=== PATIENT | male | born 1970 | race Caucasian/White ===

== ENCOUNTER 2019-04-06 14:11 | Day surgery (SDC) | payer BC, OTHER ==
[2019-04-06] MEDS ORDERED: Ondansetron 4 MG/2 ML SDV IVPUSH ONE (14:34)
[2019-04-06] MEDS ORDERED: Diphtheria,Pertussis(Acell),Tetanus Vaccine 0.5 ML Syringe IM ONE (14:34)
[2019-04-06] MEDS ORDERED: HYDROmorphone 1 MG/ML Syringe IVPUSH ONE (14:34)
[2019-04-06] MEDS ORDERED: Sodium Chloride 0.9% 1,000 ML IV ONE (14:36)
--- NOTE | 2019-04-06 14:42 | EDM.PDOC ---
ED HPI GENERAL MEDICAL PROBLEM - General Chief Complaint: Upper Extremity Injury/Pain Stated Complaint: BROKE ARM Time Seen by Provider: 04/06/19 14:33 Source of Information: Reports: Patient History Limitations: Reports: No Limitations - History of Present Illness INITIAL COMMENTS - FREE TEXT/NARRATIVE: HISTORY AND PHYSICAL: History of present illness: Patient is a 48-year-old male who presents to the emergency room today with complaints of left upper extremity pain. He states he slipped on the ice prior to arrival and has had pain from his mid humerus down to his mid forearm with an open area that is bleeding above the left elbow. He denies hitting his head or having any loss of consciousness. Denies any other extremity involvement. Has no systemic complaints. States his last time of eating/drinking was at noon. History of Type 2 DM. Review of systems: As per history of present illness and below otherwise all systems reviewed and negative. Past medical history: As per history of present illness and as reviewed below otherwise noncontributory. Surgical history: As per history of present illness and as reviewed below otherwise noncontributory. Social history: See social history for further information Family history: As per history of present illness and as reviewed below otherwise noncontributory. Physical exam: General: Well-developed and well-nourished 48-year-old male. Alert and oriented. Nontoxic-appearing and in no acute distress. HEENT: Atraumatic, normocephalic, pupils equal and reactive bilaterally, negative for conjunctival pallor or scleral icterus, mucous membranes moist, TMs normal bilaterally, throat clear, neck supple, nontender, trachea midline. No drooling or trismus noted. No meningeal signs. No hot potato voice noted. Lungs: Clear to auscultation, breath sounds equal bilaterally, chest nontender. Heart: S1S2, regular rate and rhythm without overt murmur Abdomen: Soft, nondistended, nontender. Negative for masses or hepatosplenomegaly. Negative for costovertebral tenderness. Pelvis: Stable nontender. Skin: Intact, warm, dry. No lesions or rashes noted. Extremities: Left elbow injury. Passive ROM, otherwise states he is unable to flex and extend the elbow. SEE SKIN for details. Strong radial pulse. Otherwise moves all other extremities per self without difficulty or deficits. Neurovascular unremarkable. C-spine/Back: No pinpoint vertebral tenderness upon palpation. No crepitus, step -offs or obvious deformities. Patient is ambulatory into the emergency room without difficulty or deficit. Able to rock back on heels and walk on toes. Denies any urinary or fecal incontinence. Denies any numbness, tingling or saddle paresthesia. Neuro: Awake, alert, oriented. Cranial nerves II through XII unremarkable. Cerebellum unremarkable. Motor and sensory unremarkable throughout. Exam nonfocal. Notes: X-ray shows a displaced and comminuted distal fracture of the humerus with intra -articular extension. This would be considered an open fracture as he does have a burst to the distal humerus that is controlled bleeding with an [place]win wrap at this time. Ancef has been given IV while here in the emergency room. Dr Yarbrough was consulted on this patient; he is here to evaluate the patient. Dr Yarbrough has requested CT of the upper extremity; will take to surgery. Patient is aware and agreeable to plan of care. Diagnostics: X-ray left forearm, x-ray left elbow, CT LUE, CBC, CMP Therapeutics: Zofran, Ancef, Dilaudid Impression: Open distal displaced and comminuted humerous fracture, left Plan: To OR per Dr Yarbrough Definitive disposition and diagnosis as appropriate pending reevaluation and review of above. Left Upper Elbow Pain Score (Numeric/FACES): 8 - Related Data Allergies Allergy/AdvReac Type Severity Reaction Status Date / Time No Known Allergies Allergy Verified 04/06/19 14:52 Home Meds: Home Meds . [No Known Home Meds] 04/06/19 [History] Review of Systems - Review of Systems Review Of Systems: Comprehensive ROS is negative, except as noted in HPI. ED EXAM, GENERAL - Physical Exam Exam: See Below (See dictation) Course - Vital Signs Last Recorded V/S: Last Vital Signs Temp 95.6 F 04/06/19 14:53 Pulse 65 04/06/19 14:53 Resp 16 04/06/19 14:53 BP 109/65 04/06/19 14:53 Pulse Ox 95 04/06/19 14:53 - Orders/Labs/Meds Orders: Active Orders 24 hr Category Date Time Status Vaccines to be Administered [RC] PER UNIT ROUTINE Care 04/06/19 14:35 Active Elbow wo Cont Lt [CT] Stat Exams 04/06/19 15:26 Ordered Sodium Chloride 0.9% [Normal Saline] 1,000 ml Med 04/06/19 14:36 Active IV STAT Medication Orders Sodium Chloride (Normal Saline) 1,000 mls @ 75 mls/hr IV STAT ONE Stop: 04/07/19 03:55 Last Admin: 04/06/19 15:22 Dose: 75 mls/hr Labs: Laboratory Tests 04/06/19 04/06/19 Range/Units 15:30 15:30 WBC 11.76 H (4.0-11.0) K/uL RBC 5.35 (4.50-5.90) M/uL Hgb 16.4 (13.0-17.0) g/dL Hct 48.1 (38.0-50.0) % MCV 89.9 (80.0-98.0) fL MCH 30.7 (27.0-32.0) pg MCHC 34.1 (31.0-37.0) g/dL RDW Std Deviation 43.8 (28.0-62.0) fl RDW Coeff of Namrata 13 (11.0-15.0) % Plt Count 226 (150-400) K/uL MPV 10.50 (7.40-12.00) fL Neut % (Auto) 77.0 (48.0-80.0) % Lymph % (Auto) 15.1 L (16.0-40.0) % [place] % (Auto) 6.2 (0.0-15.0) % Eos % (Auto) 1.5 (0.0-7.0) % Baso % (Auto) 0.2 (0.0-1.5) % Neut # (Auto) 9.1 H (1.4-5.7) K/uL Lymph # (Auto) 1.8 (0.6-2.4) K/uL [place] # (Auto) 0.7 (0.0-0.8) K/uL Eos # (Auto) 0.2 (0.0-0.7) K/uL Baso # (Auto) 0.0 (0.0-0.1) K/uL Nucleated RBC % 0.0 /100WBC Nucleated RBCs # 0 K/uL Sodium 135 L (136-148) mmol/L Potassium 4.2 (3.5-5.1) mmol/L Chloride 100 (98-107) mmol/L Carbon Dioxide 21.1 (21.0-32.0) mmol/L BUN 19 H (7.0-18.0) mg/dL Creatinine 1.3 (0.8-1.3) mg/dL Est Cr Clr Drug Dosing 77.10 mL/min Estimated GFR (MDRD) 59.2 ml/min Glucose 295 H (74-106) mg/dL Calcium 8.9 (8.5-10.1) mg/dL Total Bilirubin 0.6 (0.2-1.0) mg/dL AST 35 (15-37) IU/L ALT 68 H (14-63) IU/L Alkaline Phosphatase 100 (46-116) U/L Total Protein 7.9 (6.4-8.2) g/dL Albumin 3.7 (3.4-5.0) g/dL Globulin 4.2 H (2.6-4.0) g/dL Albumin/Globulin Ratio 0.9 (0.9-1.6) Meds: Medications Generic Name Dose Route Start Last Admin Trade Name Freq PRN Reason Stop Dose Admin Sodium Chloride 1,000 mls @ 75 mls/hr 04/06/19 14:36 04/06/19 15:22 Normal Saline IV 04/07/19 03:55 75 mls/hr STAT ONE Administration Discontinued Medications Generic Name Dose Route Start Last Admin Trade Name Freq PRN Reason Stop Dose Admin Diphtheria/Tetanus/Acell Pertussis 0.5 ml 04/06/19 14:34 04/06/19 15:26 Adacel IM 04/06/19 14:35 0.5 ml .ONCE ONE Administration Fentanyl Confirm 04/06/19 16:04 Sublimaze Administered 04/06/19 16:05 Dose 250 mcg .ROUTE .STK-MED ONE Glycopyrrolate Confirm 04/06/19 16:03 Robinul Administered 04/06/19 16:04 Dose 0.4 mg .ROUTE .STK-MED ONE Hydromorphone HCl 1 mg 04/06/19 14:34 04/06/19 15:14 Dilaudid IVPUSH 04/06/19 14:35 1 mg ONETIME ONE Administration Hydromorphone HCl 0.5 mg 04/06/19 16:01 Dilaudid IVPUSH 12/26/19 16:02 ONETIME ONE Cefazolin Sodium/Dextrose 1 gm 50 mls @ 100 mls/hr 04/06/19 14:49 04/06/19 15 :22 / Premix IV 04/06/19 15:18 100 mls/hr ONETIME ONE Administration Lidocaine Confirm 04/06/19 16:03 Xylocaine-Mpf 2% Administered 04/06/19 16:04 Dose 5 ml .ROUTE .STK-MED ONE Midazolam HCl Confirm 04/06/19 16:03 Versed 1 Mg/Ml Administered 04/06/19 16:04 Dose 2 mg .ROUTE .STK-MED ONE Neostigmine Methylsulfate Confirm 04/06/19 16:03 Neostigmine Administered 04/06/19 16:04 Dose 5 mg .ROUTE .STK-MED ONE Ondansetron HCl 4 mg 04/06/19 14:34 04/06/19 15:21 Zofran IVPUSH 04/06/19 14:35 4 mg ONETIME ONE Administration Ondansetron HCl Confirm 04/06/19 16:03 Zofran Administered 04/06/19 16:04 Dose 4 mg .ROUTE .STK-MED ONE Propofol Confirm 04/06/19 16:03 Diprivan 20 Ml Administered 04/06/19 16:04 Dose 200 mg .ROUTE .STK-MED ONE Rocuronium [place] Confirm 04/06/19 16:03 Zemuron Administered 04/06/19 16:04 Dose 100 mg .ROUTE .STK-MED ONE Departure - Departure Time of Disposition: 16:04 Disposition: Still A Patient 30 Clinical Impression: Humeral distal fracture Qualifiers: Encounter type: initial encounter Fracture type: open Fracture morphology: other fracture Fracture alignment: displaced Laterality: left Qualified Code(s) : S42.492B - Other displaced fracture of lower end of left humerus, initial encounter for open fracture - Discharge Information Sepsis Event Note - Focused Exam Vital Signs: Vital Signs Temp Pulse Resp BP Pulse Ox 04/06/19 14:53 95.6 F 65 16 109/65 95 Date Exam was Performed: 04/06/19 Time Exam was Performed: 16:19 - My Orders Last 24 Hours: My Active Orders 04/06/19 14:35 Vaccines to be Administered [RC] PER UNIT ROUTINE 04/06/19 14:36 Sodium Chloride 0.9% [Normal Saline] 1,000 ml IV STAT 04/06/19 15:26 Elbow wo Cont Lt [CT] Stat - Assessment/Plan Last 24 Hours: My Active Orders 04/06/19 14:35 Vaccines to be Administered [RC] PER UNIT ROUTINE 04/06/19 14:36 Sodium Chloride 0.9% [Normal Saline] 1,000 ml IV STAT 04/06/19 15:26 Elbow wo Cont Lt [CT] Stat
[2019-04-06] MEDS ORDERED: ceFAZolin 1 GM in Premix Bag 1 BAG IV ONE (14:49)
--- NOTE | 2019-04-06 15:49 | CR ---
Left elbow: 2 views left elbow were obtained. Comminuted fracture is noted within the distal humerus. There is extension into the intercondylar articular margin. Displacement is noted. Soft tissue swelling is noted. No additional abnormality is seen. Impression: 1. Displaced and comminuted distal humeral fracture with intra-articular extension. Diagnostic code #5 This report was dictated in [place] Standard Time
--- NOTE | 2019-04-06 15:54 | CR ---
Left forearm: 2 views of the left forearm were obtained. Comparison: No previous study. Comminuted distal humeral fracture is again noted. Dislocation noted at the radiocapitellar joint. Soft tissue swelling is noted. No additional abnormality is appreciated. Impression: 1. Comminuted fracture within the distal humerus. Dislocation of the radiocapitellar joint is noted. 2. Soft tissue swelling. Diagnostic code #5 This report was dictated in [place] Standard Time
--- NOTE | 2019-04-06 15:54 | CR ---
Left humerus: 2 views of the left humerus were obtained. Comment distal humeral fracture is again noted with articular extension. Dislocation at the radiocapitellar joint is noted. No proximal abnormality is seen. Impression: 1. Fracture and dislocation at the elbow as previously described. 2. No proximal soft tissue abnormality is seen. Diagnostic code #5 This report was dictated in [place] Standard Time
--- NOTE | 2019-04-06 15:57 | PCM.PREANE ---
Preanesthetic Assessment - Anesthesia/Transfusion/Family Hx Anesthesia History: Prior Anesthesia Without Reaction Family History of Anesthesia Reaction: No Transfusion History: Unknown Intubation History: Unknown - Review of Systems General: No Symptoms Pulmonary: No Symptoms Cardiovascular: No Symptoms Gastrointestinal: No Symptoms Neurological: No Symptoms Other: Reports: None - Physical Assessment Vital Signs: Last Vital Signs Temp 35.3 C 04/06/19 14:53 Pulse 65 04/06/19 14:53 Resp 16 04/06/19 14:53 BP 109/65 04/06/19 14:53 Pulse Ox 95 04/06/19 14:53 Height: 6 ft Weight: 136.078 kg ASA Class: 2E Mental Status: Alert & Oriented x3 Airway Class: Mallampati = 2 Dentition: Reports: Broken Tooth/Teeth (crooked front teeth upper and lower) Thyro-Mental Finger Breadths: 2 Mouth Opening Finger Breadths: 2 ROM/Head Extension: Full Lungs: Clear to Auscultation, Normal Respiratory Effort Cardiovascular: Regular Rate, Regular Rhythm - Lab Values: Laboratory Last Values WBC 11.76 K/uL (4.0-11.0) H 04/06/19 15:30 RBC 5.35 M/uL (4.50-5.90) 04/06/19 15:30 Hgb 16.4 g/dL (13.0-17.0) 04/06/19 15:30 Hct 48.1 % (38.0-50.0) 04/06/19 15:30 MCV 89.9 fL (80.0-98.0) 04/06/19 15:30 MCH 30.7 pg (27.0-32.0) 04/06/19 15:30 MCHC 34.1 g/dL (31.0-37.0) 04/06/19 15:30 RDW Std Deviation 43.8 fl (28.0-62.0) 04/06/19 15:30 RDW Coeff of Namrata 13 % (11.0-15.0) 04/06/19 15:30 Plt Count 226 K/uL (150-400) 04/06/19 15:30 MPV 10.50 fL (7.40-12.00) 04/06/19 15:30 Neut % (Auto) 77.0 % (48.0-80.0) 04/06/19 15:30 Lymph % (Auto) 15.1 % (16.0-40.0) L 04/06/19 15:30 [place] % (Auto) 6.2 % (0.0-15.0) 04/06/19 15:30 Eos % (Auto) 1.5 % (0.0-7.0) 04/06/19 15:30 Baso % (Auto) 0.2 % (0.0-1.5) 04/06/19 15:30 Neut # (Auto) 9.1 K/uL (1.4-5.7) H 04/06/19 15:30 Lymph # (Auto) 1.8 K/uL (0.6-2.4) 04/06/19 15:30 [place] # (Auto) 0.7 K/uL (0.0-0.8) 04/06/19 15:30 Eos # (Auto) 0.2 K/uL (0.0-0.7) 04/06/19 15:30 Baso # (Auto) 0.0 K/uL (0.0-0.1) 04/06/19 15:30 Nucleated RBC % 0.0 /100WBC 04/06/19 15:30 Nucleated RBCs # 0 K/uL 04/06/19 15:30 - Allergies Allergies/Adverse Reactions: Allergies Allergy/AdvReac Type Severity Reaction Status Date / Time No Known Allergies Allergy Verified 04/06/19 14:52 - Blood Blood Available: No - Anesthesia Plan Pre-Op Medication Ordered: None - Acknowledgements Anesthesia Type Planned: General Anesthesia (rapid sequence induction) Pt an Appropriate Candidate for the Planned Anesthesia: Yes Alternatives and Risks of Anesthesia Discussed w Pt/Guardian: Yes Pt/Guardian Understands and Agrees with Anesthesia Plan: Yes PreAnesthesia Questionnaire Musculoskeletal History: Reports: Other (See Below) (left distal humerus fx.) Endocrine/Metabolic History: Reports: Diabetes, Type II, Obesity/BMI 30+ (BMI 40.7) - Infectious Disease History Infectious Disease History: Reports: None - Past Surgical History Musculoskeletal Surgical History: Reports: Other (See Below) (closed reductions left shoulder dislocation) - SUBSTANCE USE Smoking Status *Q: Current Every Day Smoker Recreational Drug Use History: No - HOME MEDS Home Medications: Home Meds . [No Known Home Meds] 04/06/19 [History] - CURRENT (IN HOUSE) MEDS Current Meds: Current Medications Sodium Chloride (Normal Saline) 1,000 mls @ 75 mls/hr IV STAT ONE Stop: 04/07/19 03:55 Last Admin: 04/06/19 15:22 Dose: 75 mls/hr Discontinued Medications Diphtheria/Tetanus/Acell Pertussis (Adacel) 0.5 ml IM .ONCE ONE Stop: 04/06/19 14:35 Last Admin: 04/06/19 15:26 Dose: 0.5 ml Hydromorphone HCl (Dilaudid) 1 mg IVPUSH ONETIME ONE Stop: 04/06/19 14:35 Last Admin: 04/06/19 15:14 Dose: 1 mg Cefazolin Sodium/Dextrose 1 gm (/ Premix) 50 mls @ 100 mls/hr IV ONETIME ONE Stop: 04/06/19 15:18 Last Admin: 04/06/19 15:22 Dose: 100 mls/hr Ondansetron HCl (Zofran) 4 mg IVPUSH ONETIME ONE Stop: 04/06/19 14:35 Last Admin: 04/06/19 15:21 Dose: 4 mg
[2019-04-06 16:00] LABS: CARBON DIOXIDE,CO2 21.1 mmol/L (21.0-32.0); POTASSIUM,K 4.2 mmol/L (3.5-5.1)
[2019-04-06] MEDS ORDERED: HYDROmorphone 2 MG/ML Syringe IVPUSH ONE (16:01)
[2019-04-06] MEDS ORDERED: Rocuronium 100 MG/10 ML Syringe ONE (16:03)
[2019-04-06] MEDS ORDERED: Propofol 200 MG/20 ML SDV ONE (16:03)
[2019-04-06] MEDS ORDERED: Lidocaine 2% 5 ML SDV ONE (16:03)
[2019-04-06] MEDS ORDERED: Ondansetron 4 MG/2 ML SDV ONE (16:03)
[2019-04-06] MEDS ORDERED: Glycopyrrolate 0.2 MG/ML SDV ONE ×2 (16:03→18:05)
[2019-04-06] MEDS ORDERED: Neostigmine Methylsulfate 1 MG/ML 5 ML Syringe ONE (16:03)
[2019-04-06] MEDS ORDERED: Midazolam 1 MG/ML 2 ML SDV ONE (16:03)
[2019-04-06] MEDS ORDERED: fentaNYL 250 MCG/5 ML SDV ONE (16:04)
[2019-04-06] MEDS ORDERED: Sodium Chloride 0.9% 20 ML ONE ×2 (16:37→20:27)
[2019-04-06] MEDS ORDERED: ceFAZolin 1 GM Vial ONE ×2 (16:37→20:27)
[2019-04-06] MEDS ORDERED: ePHEDrine 50 MG/ML SDV ONE (17:22)
[2019-04-06] MEDS ORDERED: Phenylephrine/Normal Saline 100 MCG/ML 10 ML Syringe ONE (17:51)
[2019-04-06] MEDS ORDERED: Phenylephrine 1% 10 MG/ML SDV ONE (19:03)
[2019-04-06] MEDS ORDERED: fentaNYL 100 MCG/2 ML SDV ONE ×2 (19:22→19:49)
[2019-04-06] MEDS ORDERED: EPINEPHrine 1:10,000 1 MG/10 ML Syringe IVPUSH PRN (20:52)
[2019-04-06] MEDS ORDERED: Albuterol 0.083% 2.5 MG/3 ML Neb Soln NEB PRN (20:52)
[2019-04-06] MEDS ORDERED: Atropine 0.1 MG/ML 10 ML Syringe IVPUSH PRN ×2 (20:52)
[2019-04-06] MEDS ORDERED: Naloxone 0.4 MG/ML Syringe IVPUSH PRN (20:52)
[2019-04-06] MEDS ORDERED: 50% Dextrose in Water 50 ML Syringe IVPUSH PRN (20:52)
[2019-04-06] MEDS ORDERED: Ketamine 500 mg/10 ML MDV ONE (21:02)
[2019-04-06] MEDS ORDERED: Ketorolac 30 MG/ML SDV IVPUSH PRN (21:15)
[2019-04-06] MEDS ORDERED: HYDROmorphone 2 MG/ML Syringe IVPUSH PRN (21:20)
[2019-04-06] MEDS: fentaNYL 100 MCG/2 ML SDV IVPUSH PRN ×4 (21:41→22:06)
--- NOTE | 2019-04-06 22:06 | PCM.POSTAN ---
POST ANESTHESIA ASSESSMENT - MENTAL STATUS Mental Status: Alert, Oriented - VITAL SIGNS Vital Signs: Last Vital Signs Temp 96.8 F 04/06/19 21:22 Pulse 84 04/06/19 22:01 Resp 12 04/06/19 22:01 BP 148/82 H 04/06/19 21:56 Pulse Ox 97 04/06/19 22:01 - RESPIRATORY Respiratory Status: Respiratory Rate WNL, Airway Patent, O2 Saturation Stable, Supplemental Oxygen - CARDIOVASCULAR CV Status: Pulse Rate WNL, Blood Pressure Stable - GASTROINTESTINAL GI Status: No Symptoms - PAIN Pain Score: 3 - POST OP HYDRATION Hydration Status: Adequate & Stable
[2019-04-06] MEDS ORDERED: Sodium Chloride 0.9% 1,000 ML IV SCH (22:30)
[2019-04-06] MEDS: Acetaminophen/oxyCODONE 325-5 MG Tab PO PRN (23:10)
[2019-04-07] MEDS: ceFAZolin 2 GM in Premix Bag 1 BAG IV SCH ×2 (05:08→14:09)
[2019-04-07] MEDS: Acetaminophen/oxyCODONE 325-5 MG Tab PO PRN ×2 (05:55→15:23)
[2019-04-07] MEDS: Insulin Aspart 100 Units/ML 3 ML Pen SUBCUT SCH ×2 (07:50→12:40)
--- NOTE | 2019-04-07 07:56 | PCM.CONS ---
H&P History of Present Illness - General Date of Service: 04/07/19 Admit Problem/Dx: Admission Diagnosis/Problem Admission Diagnosis/Problem Fracture of bone Source of Information: Patient History Limitations: Reports: No Limitations - History of Present Illness Initial Comments - Free Text/Narative: This 48 year old male with pmh of tobacco dependence, obesity and Dm Type 2 presented to the ED with left upper extremity pain after he slipped on the ice. He reported pain from his mid humerus down to his mid forearm with an open area that is bleeding above the left elbow. Orthopedics admitted for L open fracture of humerus. Hospitalist team consulted for medical management of DM. He reports he is doing well this morning. Pain to L arm. No chest pain or SOB. No abdominal pain or urinary concerns. Reports he was diagnosed with DM a few years ago, has been stable on Metformin, last A1c 7.0. He takes Lisinopril for renal protection. Denies CAD. He reports tobacco use, he was counseled on quitting, he reports Dr Zhao has also done the same and is arranging him for PFT to examine his lung function. Left Upper Elbow Pain Score (Numeric/FACES): 5 - Related Data Allergies/Adverse Reactions: Allergies Allergy/AdvReac Type Severity Reaction Status Date / Time No Known Allergies Allergy Verified 04/06/19 22:47 Home Medications: Home Meds Formoterol Fumarate 2 puff IH BID 04/06/19 [History] Lisinopril [Zestril] 5 mg PO DAILY 04/06/19 [History] Umeclidinium Brm/Vilanterol Tr [Anoro Ellipta 62.5-25 MCG] 1 puff IH DAILY 04/06 [History] metFORMIN HCl [Metformin HCl] 1,000 mg PO BIDMEALS 04/06/19 [History] Acetaminophen/oxyCODONE [Percocet 325-5 MG] 1 tab PO Q6HR PRN #56 tablet [Rx] Past Medical History Cardiovascular History: Reports: None. Denies: Afib, Blood Clots/VTE/DVT, CAD, Hypertension Respiratory History: Reports: SOB (having PFTs done as outpatient) Gastrointestinal History: Reports: None Genitourinary History: Reports: None Musculoskeletal History: Reports: Other (See Below) Psychiatric History: Reports: None Endocrine/Metabolic History: Reports: Diabetes, Type II, Obesity/BMI 30+ - Infectious Disease History Infectious Disease History: Reports: Chicken Pox - Past Surgical History GI Surgical History: Reports: None Musculoskeletal Surgical History: Reports: Other (See Below) Social & Family History - Family History Family Medical History: Noncontributory - Tobacco Use Smoking Status *Q: Current Every Day Smoker Years of Tobacco use: 15 Packs/Tins Daily: 1 Second Hand Smoke Exposure: Yes - Caffeine Use Caffeine Use: Reports: Soda - Alcohol Use Alcohol Use History: No Alcohol Use Frequency: Socially - Recreational Drug Use Recreational Drug Use: No - Living Situation & Occupation Occupation: Employed H&P Review of Systems - Review of Systems: Review Of Systems: See Below General: Reports: No Symptoms. Denies: Fever, Chills, Malaise Pulmonary: Reports: No Symptoms. Denies: Shortness of Breath, Cough, Sputum Cardiovascular: Reports: No Symptoms. Denies: Chest Pain Gastrointestinal: Reports: No Symptoms. Denies: Abdominal Pain Genitourinary: Reports: No Symptoms. Denies: Dysuria, Frequency, Burning Psychiatric: Reports: No Symptoms Neurological: Reports: No Symptoms Hematologic/Lymphatic: Reports: No Symptoms Immunologic: Reports: No Symptoms Exam - Exam Exam: See Below - Vital Signs Vital Signs: Last Vital Signs Temp 97.9 F 04/07/19 05:31 Pulse 71 04/07/19 05:31 Resp 18 04/07/19 05:31 BP 145/69 H 04/07/19 05:31 Pulse Ox 95 04/07/19 05:31 Weight: 141 kg - Exam General: Alert, Oriented, Cooperative HEENT: Conjunctiva Clear, Mucosa Moist & [place] Lungs: Clear to Auscultation, Normal Respiratory Effort Cardiovascular: Regular Rate, Regular Rhythm GI/Abdominal Exam: Normal Bowel Sounds, Soft, Non-Tender Extremities: Normal Inspection, Normal Range of Motion, No Pedal Edema Neuro Extensive - Mental Status: Alert, Oriented x3 Neuro Extensive - Motor, Sensory, Reflexes: CN II-XII Intact Psychiatric: Alert, Normal Affect, Normal Mood - Patient Data Lab Results Last 24 hrs: Laboratory Results - last 24 hr 04/06/19 04/06/19 04/06/19 Range/Units 15:30 15:30 21:38 WBC 11.76 H (4.0-11.0) K/uL RBC 5.35 (4.50-5.90) M/uL Hgb 16.4 (13.0-17.0) g/dL Hct 48.1 (38.0-50.0) % MCV 89.9 (80.0-98.0) fL MCH 30.7 (27.0-32.0) pg MCHC 34.1 (31.0-37.0) g/dL RDW Std Deviation 43.8 (28.0-62.0) fl RDW Coeff of [place] 13 (11.0-15.0) % Plt Count 226 (150-400) K/uL MPV 10.50 (7.40-12.00) fL Neut % (Auto) 77.0 (48.0-80.0) % Lymph % (Auto) 15.1 L (16.0-40.0) % [place] % (Auto) 6.2 (0.0-15.0) % Eos % (Auto) 1.5 (0.0-7.0) % Baso % (Auto) 0.2 (0.0-1.5) % Neut # (Auto) 9.1 H (1.4-5.7) K/uL Lymph # (Auto) 1.8 (0.6-2.4) K/uL [place] # (Auto) 0.7 (0.0-0.8) K/uL Eos # (Auto) 0.2 (0.0-0.7) K/uL Baso # (Auto) 0.0 (0.0-0.1) K/uL Nucleated RBC % 0.0 /100WBC Nucleated RBCs # 0 K/uL Sodium 135 L (136-148) mmol/L Potassium 4.2 (3.5-5.1) mmol/L Chloride 100 (98-107) mmol/L Carbon Dioxide 21.1 (21.0-32.0) mmol/L BUN 19 H (7.0-18.0) mg/dL Creatinine 1.3 (0.8-1.3) mg/dL Est Cr Clr Drug Dosing 77.10 mL/min Estimated GFR (MDRD) 59.2 ml/min Glucose 295 H (74-106) mg/dL POC Glucose 225 H (60-110) mg/dL Calcium 8.9 (8.5-10.1) mg/dL Total Bilirubin 0.6 (0.2-1.0) mg/dL AST 35 (15-37) IU/L ALT 68 H (14-63) IU/L Alkaline Phosphatase 100 (46-116) U/L Total Protein 7.9 (6.4-8.2) g/dL Albumin 3.7 (3.4-5.0) g/dL Globulin 4.2 H (2.6-4.0) g/dL Albumin/Globulin Ratio 0.9 (0.9-1.6) 04/07/19 Range/Units 05:20 WBC (4.0-11.0) K/uL RBC (4.50-5.90) M/uL Hgb 13.2 (13.0-17.0) g/dL Hct 39.6 (38.0-50.0) % MCV (80.0-98.0) fL MCH (27.0-32.0) pg MCHC (31.0-37.0) g/dL RDW Std Deviation (28.0-62.0) fl RDW Coeff of [place] (11.0-15.0) % Plt Count (150-400) K/uL MPV (7.40-12.00) fL Neut % (Auto) (48.0-80.0) % Lymph % (Auto) (16.0-40.0) % [place] % (Auto) (0.0-15.0) % Eos % (Auto) (0.0-7.0) % Baso % (Auto) (0.0-1.5) % Neut # (Auto) (1.4-5.7) K/uL Lymph # (Auto) (0.6-2.4) K/uL [place] # (Auto) (0.0-0.8) K/uL Eos # (Auto) (0.0-0.7) K/uL Baso # (Auto) (0.0-0.1) K/uL Nucleated RBC % /100WBC Nucleated RBCs # K/uL Sodium (136-148) mmol/L Potassium (3.5-5.1) mmol/L Chloride (98-107) mmol/L Carbon Dioxide (21.0-32.0) mmol/L BUN (7.0-18.0) mg/dL Creatinine (0.8-1.3) mg/dL Est Cr Clr Drug Dosing mL/min Estimated GFR (MDRD) ml/min Glucose (74-106) mg/dL POC Glucose (60-110) mg/dL Calcium (8.5-10.1) mg/dL Total Bilirubin (0.2-1.0) mg/dL AST (15-37) IU/L ALT (14-63) IU/L Alkaline Phosphatase (46-116) U/L Total Protein (6.4-8.2) g/dL Albumin (3.4-5.0) g/dL Globulin (2.6-4.0) g/dL Albumin/Globulin Ratio (0.9-1.6) Result Diagrams: 04/07/19 05:20 04/06/19 15:30 Sepsis Event Note - Evaluation Sepsis Screening Result: No Definite Risk - Focused Exam Vital Signs: Vital Signs Temp Pulse Resp BP Pulse Ox 04/07/19 05:31 97.9 F 71 18 145/69 H 95 04/07/19 04:43 90 L 04/07/19 02:45 96.8 F 66 15 127/52 L 96 04/07/19 01:32 68 15 158/75 H 100 04/07/19 00:32 83 17 164/83 H 97 04/06/19 23:30 96.9 F 87 14 142/67 H 94 L 04/06/19 22:45 73 13 167/79 H 98 04/06/19 22:30 85 12 178/80 H 96 04/06/19 22:15 96.5 F 85 12 127/79 91 L 04/06/19 22:11 86 12 156/87 H 97 04/06/19 22:06 86 10 L 154/79 H 97 04/06/19 22:01 84 12 154/84 H 97 04/06/19 21:56 87 12 148/82 H 96 04/06/19 21:51 85 12 169/83 H 100 04/06/19 21:46 84 14 161/87 H 100 04/06/19 21:41 87 16 167/92 H 100 04/06/19 21:36 89 16 175/88 H 100 04/06/19 21:31 92 16 163/89 H 99 04/06/19 21:26 100 16 167/92 H 97 04/06/19 21:22 96.8 F 104 H 16 158/67 H 92 L Date Exam was Performed: 04/07/19 Time Exam was Performed: 09:23 Consult PN Assessment/Plan POD#: 1 Procedures: Procedures ASSAY OF AMYLASE (04/30/16) ASSAY OF C-PEPTIDE (10/25/15) ASSAY OF FREE THYROXINE (12/07/18) ASSAY THYROID STIM HORMONE (12/07/18) CO/MEMBANE DIFFUSE CAPACITY (12/02/16) COMPLETE CBC W/AUTO DIFF WBC (12/07/18) COMPREHEN METABOLIC PANEL (12/07/18) EVALUATION OF WHEEZING (12/02/16) GLYCOSYLATED HEMOGLOBIN TEST (12/07/18) LIPID PANEL (12/07/18) ROUTINE VENIPUNCTURE (12/07/18) (1) Humeral distal fracture SNOMED Code(s): 670909669 Code(s): S42.409A - UNSP FRACTURE OF LOWER END OF UNSP HUMERUS, INIT FOR CLOS FX Current Visit: Yes Qualifiers: Encounter type: initial encounter Fracture type: open Fracture morphology : other fracture Fracture alignment: displaced Laterality: left Qualified Code(s): S42.492B - Other displaced fracture of lower end of left humerus, initial encounter for open fracture (2) Obesity SNOMED Code(s): 775524615, 445360083 Code(s): E66.9 - OBESITY, UNSPECIFIED Current Visit: Yes (3) Type 2 diabetes mellitus SNOMED Code(s): 45798760 Code(s): E11.9 - TYPE 2 DIABETES MELLITUS WITHOUT COMPLICATIONS Current Visit: Yes (4) Tobacco dependence SNOMED Code(s): 01939067 Code(s): F17.200 - NICOTINE DEPENDENCE, UNSPECIFIED, UNCOMPLICATED Current Visit: Yes Problem List Initiated/Reviewed/Updated: Yes My Orders Last 24 Hours: My Active Orders 04/07/19 09:00 Formoterol Fumarate [Formoterol Fumarate] 2 puff IH BID Umeclidinium Brm/Vilanterol Tr 1 puff IH DAILY lisinopriL [Prinivil] 5 mg PO DAILY Plan: This 48 year old male admitted with left humeral fracture. Hospitalist service consulted for medical management of Dm TYpe 2 1. Humeral fracture: Per Orthopedics. Did discuss tobacco cessation to help with healing, he verbalized understanding and has thought many times about quitting. Wants no help at this time. 2. Type 2 DM: Novolog SSI, Hold Metformin while admitted. Discussed with patient , restarting Metformin once discharged home. Continue Lisinopril for renal protection. VTE prophylaxis: Recommended when deemed appropriate by Orthopedics.
--- NOTE | 2019-04-07 08:56 | PCM.DCSUM1 ---
Discharge Summary - Hospital Course HPI Initial Comments: 48 yo male orif yesterday for left distal comminuted intercondylar distal humerus fracture Diagnosis: Stroke: No - Discharge Data Discharge Date: 04/07/19 Discharge Disposition: Home, Self-Care 01 Condition: Fair - Referral to Home Health Primary Care Physician: Malcom Zhao MD - Discharge Diagnosis/Problem(s) (1) Humeral distal fracture SNOMED Code(s): 927300637 ICD Code: S42.409A - UNSP FRACTURE OF LOWER END OF UNSP HUMERUS, INIT FOR CLOS FX Status: Acute Current Visit: Yes Qualifiers: Encounter type: initial encounter Fracture type: open Fracture morphology : other fracture Fracture alignment: displaced Laterality: left Qualified Code(s): S42.492B - Other displaced fracture of lower end of left humerus, initial encounter for open fracture - Patient Summary/Data Operative Procedure(s) Performed: orif left distal humerus fracture. left ulnar nerve transposition. left olecranon osteotomy. orif left ulna Complications: none Consults: Consultations 04/06/19 21:16 Consult to Physician [CONS] Routine 04/06/19 21:17 OT Evaluation and Treatment [CONS] Routine PT Evaluation and Treatment [CONS] Routine - Patient Instructions Diet: Usual Diet as Tolerated Driving: May Drive Today Showering/Bathing: May Shower Wound/Incision Care: Keep Operative Site/Wound Site Clean and Dry, Do NOT Change Dressing Notify Provider of: Fever, Increased Pain, Swelling and Redness, Drainage, Nausea and/or Vomiting - Discharge Plan *PRESCRIPTION DRUG MONITORING PROGRAM REVIEWED*: Yes *COPY OF PRESCRIPTION DRUG MONITORING REPORT IN PATIENT ANNA: No Prescriptions/Med Rec: Acetaminophen/oxyCODONE [Percocet 325-5 MG] 1 tab PO Q6HR PRN #56 tablet PRN Reason: Pain Home Medications: Home Meds Formoterol Fumarate 2 puff IH BID 04/06/19 [History] Lisinopril [Zestril] 5 mg PO DAILY 04/06/19 [History] Umeclidinium Brm/Vilanterol Tr [Anoro Ellipta 62.5-25 MCG] 1 puff IH DAILY 04/06 [History] metFORMIN HCl [Metformin HCl] 1,000 mg PO BIDMEALS 04/06/19 [History] Acetaminophen/oxyCODONE [Percocet 325-5 MG] 1 tab PO Q6HR PRN #56 tablet [Rx] Patient Handouts: Humerus Fracture Treated With ORIF, Care After, Acetaminophen ; Oxycodone tablets Referrals: Malcom Zhao MD [Primary Care Provider] - 04/19/19 11:15 am Nick Yarbrough DO [Physician] - 04/18/19 1:45 pm - Discharge Summary/Plan Comment DC Time >30 min.: No - General Info Date of Service: 04/07/19 Admission Dx/Problem (Free Text: Admission Diagnosis/Problem Admission Diagnosis/Problem Fracture of bone Functional Status: Reports: Pain Controlled, Tolerating Diet, Ambulating, Urinating - Review of Systems General: Reports: No Symptoms HEENT: Reports: No Symptoms Pulmonary: Reports: No Symptoms Cardiovascular: Reports: No Symptoms Gastrointestinal: Reports: No Symptoms Genitourinary: Reports: No Symptoms Musculoskeletal: Reports: No Symptoms, Shoulder Pain, Arm Pain, Joint Pain, Joint Swelling Skin: Reports: No Symptoms Neurological: Reports: Numbness Psychiatric: Reports: No Symptoms - Patient Data Vitals - Most Recent: Last Vital Signs Temp 36.5 C 04/07/19 07:30 Pulse 70 04/07/19 07:30 Resp 17 04/07/19 07:30 BP 137/54 L 04/07/19 08:31 Pulse Ox 96 04/07/19 07:30 Weight - Most Recent: 141 kg I&O - Last 24 hours: Intake & Output 04/06/19 04/07/19 04/07/19 22:59 06:59 14:59 Intake Total 3800 1263 Output Total 750 925 Balance 3050 338 Lab Results - Last 24 hrs: Laboratory Results - last 24 hr 04/06/19 04/06/19 04/06/19 Range/Units 15:30 15:30 21:38 WBC 11.76 H (4.0-11.0) K/uL RBC 5.35 (4.50-5.90) M/uL Hgb 16.4 (13.0-17.0) g/dL Hct 48.1 (38.0-50.0) % MCV 89.9 (80.0-98.0) fL MCH 30.7 (27.0-32.0) pg MCHC 34.1 (31.0-37.0) g/dL RDW Std Deviation 43.8 (28.0-62.0) fl RDW Coeff of [place] 13 (11.0-15.0) % Plt Count 226 (150-400) K/uL MPV 10.50 (7.40-12.00) fL Neut % (Auto) 77.0 (48.0-80.0) % Lymph % (Auto) 15.1 L (16.0-40.0) % [place] % (Auto) 6.2 (0.0-15.0) % Eos % (Auto) 1.5 (0.0-7.0) % Baso % (Auto) 0.2 (0.0-1.5) % Neut # (Auto) 9.1 H (1.4-5.7) K/uL Lymph # (Auto) 1.8 (0.6-2.4) K/uL [place] # (Auto) 0.7 (0.0-0.8) K/uL Eos # (Auto) 0.2 (0.0-0.7) K/uL Baso # (Auto) 0.0 (0.0-0.1) K/uL Nucleated RBC % 0.0 /100WBC Nucleated RBCs # 0 K/uL Sodium 135 L (136-148) mmol/L Potassium 4.2 (3.5-5.1) mmol/L Chloride 100 (98-107) mmol/L Carbon Dioxide 21.1 (21.0-32.0) mmol/L BUN 19 H (7.0-18.0) mg/dL Creatinine 1.3 (0.8-1.3) mg/dL Est Cr Clr Drug Dosing 77.10 mL/min Estimated GFR (MDRD) 59.2 ml/min Glucose 295 H (74-106) mg/dL POC Glucose 225 H (60-110) mg/dL Calcium 8.9 (8.5-10.1) mg/dL Total Bilirubin 0.6 (0.2-1.0) mg/dL AST 35 (15-37) IU/L ALT 68 H (14-63) IU/L Alkaline Phosphatase 100 (46-116) U/L Total Protein 7.9 (6.4-8.2) g/dL Albumin 3.7 (3.4-5.0) g/dL Globulin 4.2 H (2.6-4.0) g/dL Albumin/Globulin Ratio 0.9 (0.9-1.6) 04/07/19 Range/Units 05:20 WBC (4.0-11.0) K/uL RBC (4.50-5.90) M/uL Hgb 13.2 (13.0-17.0) g/dL Hct 39.6 (38.0-50.0) % MCV (80.0-98.0) fL MCH (27.0-32.0) pg MCHC (31.0-37.0) g/dL RDW Std Deviation (28.0-62.0) fl RDW Coeff of [place] (11.0-15.0) % Plt Count (150-400) K/uL MPV (7.40-12.00) fL Neut % (Auto) (48.0-80.0) % Lymph % (Auto) (16.0-40.0) % [place] % (Auto) (0.0-15.0) % Eos % (Auto) (0.0-7.0) % Baso % (Auto) (0.0-1.5) % Neut # (Auto) (1.4-5.7) K/uL Lymph # (Auto) (0.6-2.4) K/uL [place] # (Auto) (0.0-0.8) K/uL Eos # (Auto) (0.0-0.7) K/uL Baso # (Auto) (0.0-0.1) K/uL Nucleated RBC % /100WBC Nucleated RBCs # K/uL Sodium (136-148) mmol/L Potassium (3.5-5.1) mmol/L Chloride (98-107) mmol/L Carbon Dioxide (21.0-32.0) mmol/L BUN (7.0-18.0) mg/dL Creatinine (0.8-1.3) mg/dL Est Cr Clr Drug Dosing mL/min Estimated GFR (MDRD) ml/min Glucose (74-106) mg/dL POC Glucose (60-110) mg/dL Calcium (8.5-10.1) mg/dL Total Bilirubin (0.2-1.0) mg/dL AST (15-37) IU/L ALT (14-63) IU/L Alkaline Phosphatase (46-116) U/L Total Protein (6.4-8.2) g/dL Albumin (3.4-5.0) g/dL Globulin (2.6-4.0) g/dL Albumin/Globulin Ratio (0.9-1.6) Med Orders - Current: Current Medications Aspirin (Aspirin) 325 mg PO DAILY [facility] Last Admin: 04/07/19 08:31 Dose: 325 mg Famotidine (Pepcid) 40 mg PO DAILY [facility] Last Admin: 04/07/19 08:30 Dose: 40 mg Hydromorphone HCl (Dilaudid) 2 mg IVPUSH Q2H PRN PRN Reason: severe pain Cefazolin Sodium/Dextrose 2 gm (/ Premix) 50 mls @ 100 mls/hr IV Q8H [facility] Stop: 04/07/19 14:29 Last Admin: 04/07/19 05:08 Dose: 100 mls/hr Sodium Chloride (Normal Saline) 1,000 mls @ 75 mls/hr IV ASDIRECTED [facility] Last Admin: 04/06/19 22:34 Dose: 75 mls/hr Insulin Aspart (Novolog) 0 unit SUBCUT TIDAC [facility]; Protocol Last Admin: 04/07/19 07:50 Dose: 4 units Lisinopril (Prinivil) 5 mg PO DAILY [facility] Last Admin: 04/07/19 08:31 Dose: 5 mg Oxycodone/Acetaminophen (Percocet 325-5 Mg) 1 - 2 tab PO Q4H PRN PRN Reason: Pain Last Admin: 04/07/19 05:55 Dose: 2 tab Formoterol Fumarate [Formoterol Fumarate ] 2 each INH BID [facility] Umeclidinium Brm/ (Vilanterol Tr 1 Puff) 1 each INH DAILY [facility] Discontinued Medications Albuterol (Proventil Neb Soln) 2.5 mg NEB ONETIME PRN PRN Reason: Wheezing Atropine Sulfate (Atropine 0.1 Mg/Ml) 0.5 mg IVPUSH ASDIRECTED PRN PRN Reason: Hypo-perfusion Atropine Sulfate (Atropine 0.1 Mg/Ml) 1 mg IVPUSH ASDIRECTED PRN PRN Reason: Hypo-Perfusion Cefazolin Sodium (Ancef) Confirm Administered Dose 2 gm .ROUTE .STK-MED ONE Stop: 04/06/19 16:38 Cefazolin Sodium (Ancef) Confirm Administered Dose 2 gm .ROUTE .STK-MED ONE Stop: 04/06/19 20:28 Dextrose/Water (Dextrose 50% In Water) 50 ml IVPUSH ASDIRECTED PRN PRN Reason: Hypoglycemia Diphtheria/Tetanus/Acell Pertussis (Adacel) 0.5 ml IM .ONCE ONE Stop: 04/06/19 14:35 Last Admin: 04/06/19 15:26 Dose: 0.5 ml Ephedrine Sulfate (Ephedrine Sulfate) Confirm Administered Dose 50 mg .ROUTE .STK-MED ONE Stop: 04/06/19 17:23 Epinephrine HCl (Epinephrine 1:10,000) 1 mg IVPUSH ASDIRECTED PRN PRN Reason: ACLS Guidelines Fentanyl (Sublimaze) Confirm Administered Dose 250 mcg .ROUTE .STK-MED ONE Stop: 04/06/19 16:05 Fentanyl (Sublimaze) Confirm Administered Dose 100 mcg .ROUTE .STK-MED ONE Stop: 04/06/19 19:23 Fentanyl (Sublimaze) Confirm Administered Dose 100 mcg .ROUTE .STK-MED ONE Stop: 04/06/19 19:50 Fentanyl (Sublimaze) 50 - 100 mcg IVPUSH Q5M PRN PRN Reason: Pain Last Admin: 04/06/19 22:06 Dose: 50 mcg Glycopyrrolate (Robinul) Confirm Administered Dose 0.4 mg .ROUTE .STK-MED ONE Stop: 04/06/19 16:04 Glycopyrrolate (Robinul) Confirm Administered Dose 0.2 mg .ROUTE .STK-MED ONE Stop: 04/06/19 18:06 Hydromorphone HCl (Dilaudid) 1 mg IVPUSH ONETIME ONE Stop: 04/06/19 14:35 Last Admin: 04/06/19 15:14 Dose: 1 mg Hydromorphone HCl (Dilaudid) 0.5 mg IVPUSH ONETIME ONE Stop: 04/06/19 16:02 Last Admin: 04/06/19 16:31 Dose: 0.5 mg Sodium Chloride (Normal Saline) 1,000 mls @ 75 mls/hr IV STAT ONE Stop: 04/07/19 03:55 Last Admin: 04/06/19 15:22 Dose: 75 mls/hr Cefazolin Sodium/Dextrose 1 gm (/ Premix) 50 mls @ 100 mls/hr IV ONETIME ONE Stop: 04/06/19 15:18 Last Admin: 04/06/19 15:22 Dose: 100 mls/hr Sodium Chloride (Normal Saline) Confirm Administered Dose 20 mls @ as directed .ROUTE .STK-MED ONE Stop: 04/06/19 16:38 Sodium Chloride (Normal Saline) Confirm Administered Dose 20 mls @ as directed .ROUTE .STK-MED ONE Stop: 04/06/19 20:28 Ketamine HCl (Ketalar) Confirm Administered Dose 500 mg .ROUTE .STK-MED ONE Stop: 04/06/19 21:03 Ketorolac Tromethamine (Toradol) 30 mg IVPUSH Q6H PRN PRN Reason: Pain Last Admin: 04/06/19 21:53 Dose: 30 mg Lidocaine (Xylocaine-Mpf 2%) Confirm Administered Dose 5 ml .ROUTE .STK-MED ONE Stop: 04/06/19 16:04 Midazolam HCl (Versed 1 Mg/Ml) Confirm Administered Dose 2 mg .ROUTE .STK-MED ONE Stop: 04/06/19 16:04 Naloxone HCl (Narcan) 0.1 mg IVPUSH ASDIRECTED PRN PRN Reason: Respiratory Depression Neostigmine Methylsulfate (Neostigmine) Confirm Administered Dose 5 mg .ROUTE .STK-MED ONE Stop: 04/06/19 16:04 Ondansetron HCl (Zofran) 4 mg IVPUSH ONETIME ONE Stop: 04/06/19 14:35 Last Admin: 04/06/19 15:21 Dose: 4 mg Ondansetron HCl (Zofran) Confirm Administered Dose 4 mg .ROUTE .STK-MED ONE Stop: 04/06/19 16:04 Phenylephrine HCl (Phenylephrine In Ns 100 Mcg/Ml) Confirm Administered Dose 1 mg .ROUTE .STK-MED ONE Stop: 04/06/19 17:52 Phenylephrine HCl (Jaciel-Synephrine) Confirm Administered Dose 10 mg .ROUTE .STK- MED ONE Stop: 04/06/19 19:04 Propofol (Diprivan 20 Ml) Confirm Administered Dose 200 mg .ROUTE .STK-MED ONE Stop: 04/06/19 16:04 Rocuronium [place] (Zemuron) Confirm Administered Dose 100 mg .ROUTE .STK-MED ONE Stop: 04/06/19 16:04 - Exam General: Reports: Alert, Oriented, Mild Distress HEENT: Reports: Pupils Equal, Pupils Reactive, EOMI, Mucous Membr. Moist/[place] Neck: Reports: Supple, Trachea Midline Lungs: Reports: Normal Respiratory Effort GI/Abdominal Exam: No Distention Extremities: Joint Swelling, Arm Pain Skin: Reports: Warm, Dry, Intact Wound/Incisions: Reports: Healing Well, Dressing Dry and Intact, No Drainage Neurological: Reports: No New Focal Deficit Psy/Mental Status: Reports: Alert, Normal Affect, Normal Mood (little finger numbness) Discharge Operative/Procedures - Procedures Performed Operations: orif left distal humerus, ulnar nerve transposition, left olecranon osteoto
[2019-04-07] MEDS ORDERED: Lisinopril 5 MG Tab PO SCH (09:00)
[2019-04-07] MEDS ORDERED: FORMOTEROL FUMARATE INH SCH (09:00)
[2019-04-07] MEDS ORDERED: Aspirin 325 MG Tab PO SCH (09:00)
[2019-04-07] MEDS ORDERED: Umeclidinium Brm/Vilanterol Tr 1 PUFF INH SCH (09:00)
[2019-04-07] MEDS ORDERED: Famotidine 20 MG Tab PO SCH (09:00)
--- NOTE | 2019-04-07 09:34 | PCM48HPAN ---
Post Anesthesia Note - EVALUATION WITHIN 48HRS OF ANESTHETIC Vital Signs in Normal Range: Yes Patient Participated in Evaluation: Yes Respiratory Function Stable: Yes Airway Patent: Yes Cardiovascular Function Stable: Yes Hydration Status Stable: Yes Pain Control Satisfactory: Yes Nausea and Vomiting Control Satisfactory: Yes Mental Status Recovered: Yes Vital Signs: Last Vital Signs Temp 97.7 F 04/07/19 07:30 Pulse 70 04/07/19 07:30 Resp 17 04/07/19 07:30 BP 137/54 L 04/07/19 08:31 Pulse Ox 96 04/07/19 07:30 - COMMENTS/OBSERVATIONS Free Text/Narrative:: On continuous pulse oximetry monitoring sats 90-93% on room air. Reports adequate pain control with percocet
--- NOTE | 2019-04-07 12:30 | CR ---
Left elbow: 4 fluoroscopic spot views were obtained utilizing C-arm device of the left elbow. Comparison: Previous elbow study performed earlier on the same day. Plate and screws are identified affixing previous distal humeral fracture. Plate and screws are also noted within the olecranon process fixing previous fracture. Radiocapitellar alignment appears normal. Alignment of the fracture fragments appears very close to anatomic. Fluoroscopy time given is 7.9 seconds. Impression: 1. Operative reduction and fixation of previous fractures. Diagnostic code #2 This report was dictated in [place] Standard Time
--- NOTE | 2019-04-10 17:34 | PCM.OPNOTE ---
- General Post-Op/Procedure Note Date of Surgery/Procedure: 04/07/19 Operative Procedure(s): orif left distal humerus 4 part intercondylar T fracture. left ulnar nerve transposition. left lateral collateral ligament repair of elbow Pre Op Diagnosis: open left distal humerus intercondylar T fracture Post-Op Diagnosis: same Anesthesia Technique: General ET Tube Primary Surgeon: Nick Yarbrough EBL in mLs: 200 Complications: None Condition: Fair
--- NOTE | 2019-04-11 09:11 | OR ---
SURGEON: Nick Yarbrough DATE OF PROCEDURE: 04/06/2019 PREOPERATIVE DIAGNOSIS: Left open distal humeral intercondylar T-type fracture. POSTOPERATIVE DIAGNOSIS: Left open distal humeral intercondylar T-type fracture. PROCEDURE PERFORMED: 1. Open reduction and internal fixation, left distal humeral four-part intercondylar T-type fracture. 2. Ulnar nerve transposition. 3. Ulnar collateral ligament repair. 4. Application of posterior long-arm splint. PRIMARY SURGEON: Nick Yarbrough D.O. ANESTHESIA: General endotracheal intubation. FLUID: Lactated Ringer's solution. ESTIMATED BLOOD LOSS: 200 mL. COMPLICATION: None. SPECIMEN: None. DISCHARGE DISPOSITION: Stable to PACU. HISTORY AND INDICATIONS FOR THE PROCEDURE: The patient was seen in the ER. He had fallen from a standing height. He is diabetic. He has suffered the above-mentioned injury, which is confirmed on radiographs. Risks and goals of the procedure were explained to the patient. Informed consent was obtained. PROCEDURE IN DETAIL: The patient was seen preoperatively in the ED by myself and anesthesia staff, where the operative site was marked. He was brought to the operative suite by Anesthesia staff, where general anesthesia was administered. He was placed on the pegboard in the right lateral recumbent position. All extremities found to be well padded. The left upper extremity was then prepped and draped in a sterile manner. Time-out was called identifying the correct patient, correct procedure, the correct site, and that antibiotics had been given within appropriate period of time. The arm was placed in a tucker, and an incision was made chcf down the subcutaneous portion of the ulna. He had extensive body fat present and was carried up over the olecranon and then proximally along the posterior arm about 60% [address] the way up. Bleeding during the case was controlled with Bovie electrocautery. I went down to the bone, first on the olecranon and then made some soft tissue flaps for closure. I then used a sterilely draped fluoroscopy unit to identify about chcf down the olecranon fossa. I then used a saw and sawed this in half, after replacing the plate and then drilling the screw hole through it so I could find it later. I then carefully located the ulnar nerve by identifying the olecranon process in the lateral condyle. This did take a significant period of time, secondary to the displacement of the fracture and body habitus. After identifying the nerve and then releasing it from its deep attachments, I then transposed it more laterally and then protected it with a vessel loop. We then continued on with the case, using bone forceps to hold the olecranon and then splitting the triceps from its surrounding soft tissue medially and laterally. The bone fragments were then identified. I used copious irrigation with pulse lavage to remove the hematoma and then identified the shaft. I then stayed right on the shaft and elevated the soft tissue off it in order to avoid any injury to the radial nerve. After that had been accomplished and I had adequate exposure of the shaft, as well as the distal fragments, I reduced the distal fragment and then placed two K-wires across them. It was very difficult to place my medial and lateral plates, keep those in position, and then apply fixation, so I used a 3.5 plate and then attached that to the shaft and then I keyed in my distal fragments and the reduced intercondylar pieces to the shaft, and these keyed in very nicely. I then fixed this with two screws proximally, two screws distally to hold this in place, while I placed my other plates. I then placed my medial plate first and then my lateral plate. I first screwed my distal holes which were significantly long, sometimes most of them were 60 mm and then applied my more proximal ones on the shaft. I then removed my posterior plate that was used for preliminary fixation and then assessed our progress with radiographs. This appeared to be reduced nicely. I then placed the proximal olecranon piece back onto the remainder of the ulna and then placed an olecranon plate and then screwed that in place and then drilled approximately half of those screws into the plate. I took my final films and then copiously irrigated with Betadine infused irrigation. I had been irrigating throughout the case with Betadine infused irrigation as well. I then created a soft tissue sleeve to transpose my ulnar nerve submuscularly, and then, I noticed that my lateral collateral ligament appeared to be lax, so I used the suture anchor and attached the ligament back and held that in position. We then irrigated again, and then, I closed deep muscular layers as much as possible with 0 Stratafix in a running manner, followed by subcutaneous closure with 0 Stratafix, followed by skin rasheeda, Betadine-soaked Adaptic, sponges, and Medipore tape. I then placed a posterior long-arm splint. After the splint was applied, I then checked his radial and ulnar pulses which were strong. We then allowed him to awaken from the general anesthesia and taken to the PACU in stable condition. [id number] / MODL /[id number]
== END 2019-04-07 15:45 | disposition home or self-care (01) ==
LOC: MW.ED 14:11 → MW.SDS 15:48 → MW.MS 21:27 → MW.SDS 04-07 15:45
PROVIDERS: ATTEND Orthopaedic Surgery
DX: S42.492B Other displaced fracture of lower end of left humerus, initial encounter for open fracture (principal); E11.9 Type 2 diabetes mellitus without complications; F17.210 Nicotine dependence, cigarettes, uncomplicated; E66.9 Obesity, unspecified; W00.0XXA Fall on same level due to ice and snow, initial encounter; Z68.41 Body mass index [BMI] 40.0-44.9, adult
CPT/HCPCS: 24546; 36415; 73060; 73070; 73090; 80053; 82962; 85014; 85018; 85025; 90471; 90715; 96365; 96375; 96376; 97161; 99285; A9270; C1713; C1776; J0690; J1170; J1815; J1885; J2001; J2250; J2370; J2405; J2704; J3010; J3490; J7030; 01740; 99283